=== PATIENT | male | born 1950 | race African-American/Black ===

== ENCOUNTER 2022-07-08 23:31 | Inpatient (IN) ==
[2022-07-09] MEDS ORDERED: SODIUM CHLORIDE 0.9% 1,000 ML IV STA (00:46)
[2022-07-09 01:18] LABS: INR 1.1; PT Patient Result 12.5 SECS (10.1-12.1)
[2022-07-09 01:34] LABS: Alanine Aminotransferase 30 U/L (16-61); Alkaline Phosphatase 101 U/L (45-117); Aspartate Amino Transferase 76 U/L (0-37); Blood Urea Nitrogen 33 MG/DL (7-18); Calcium 9.4 MG/DL (8.5-10.1); Carbon Dioxide 21 MMOL/L (21-32); Chloride 111 MMOL/L (98-107); Glucose 120 MG/DL (74-106); Osmolality,Calculated 284.5 MOS/KG (273-304); Potassium 5.6 MMOL/L (3.5-5.1); Sodium 139 MMOL/L (136-145); Total Protein 8.2 G/DL (6.4-8.2)
[2022-07-09 02:44] LABS: Basophils % 0.2 % (0.0-0.8); Hematocrit 22.1 VOL% (42.0-52.0); Immature Granulocytes % 0.4 %; Immature Granulocytes Absolute 0.04 #; Lymphocytes # 0.4 10*3/uL (1.4-4.0); Lymphocytes % 3.6 % (21.2-54.2); Mean Corpuscular HGB Conc 26.2 GM/DL (32-36); Mean Corpuscular Volume 56.4 FL (87-102); Mean Platelet Volume 9.9 FL (9.6-12.0); Monocytes # 0.5 10*3/uL (0.11-0.8); Monocytes % 4.6 % (1.7-12.7); NRBC # 0.05 10*3/uL; Neutrophils % 91.2 % (38.7-73.9); Platelet Count 426 T/CUMM (130-400); Red Blood Count 3.92 MC/CUMM (3.8-5.5); Red Cell Distribution Width 21.8 % (9.3-17.3); White Blood Count 11.2 T/CUMM (4-12)
[2022-07-09 02:47] LABS: Hemoglobin 5.8 GM/DL (14.0-18.0)
[2022-07-09 03:22] LABS: Hypochromia 1+; Lymphocytes 3 % (20-55); Microcytosis Slight; Platelet Estimate Adequate; Total Cells Counted 100
[2022-07-09] MEDS ORDERED: FUROSEMIDE 40 MG/4 ML VIAL IV STA (03:37)
[2022-07-09] MEDS ORDERED: cefTRIAXone 1,000 MG in SODIUM CHLORIDE 0.9% 100 ML IV STA (03:37)
[2022-07-09] MEDS ORDERED: LABETALOL 20 MG/4 ML SYRINGE IV PRN (04:28)
[2022-07-09] MEDS ORDERED: SODIUM CHLORIDE 0.9% 1,000 ML IV PRN ×2 (04:32→14:23)
[2022-07-09] MEDS ORDERED: cefTRIAXone 1,000 MG in SODIUM CHLORIDE 0.9% 100 ML IV SCH (05:00)
[2022-07-09 07:31] LABS: Risk Ratio 2.32; VLDL Cholesterol 13.4 MG/DL
[2022-07-09] MEDS ORDERED: FUROSEMIDE 40 MG/4 ML VIAL IV ONE (10:15)
[2022-07-09 10:39] LABS: Arterial Base Excess iSTAT -3 MMOL/L (-2.5-2.5); Arterial Bicarbonate iSTAT 20.2 MMOL/L (20-26); Arterial O2 Saturation iSTAT 94 % (95-100); Arterial PCO2 iSTAT 29 MM HG (35-48); Arterial PO2 iSTAT 65 MM HG (80-95); Arterial Total CO2 iSTAT 21 MMO/L (23-27); Arterial pH iSTAT 7.445 (7.35-7.45)
[2022-07-09 10:46] LABS: % Iron Saturation 3.2 % (18-50)
[2022-07-09 10:54] LABS: Folate 21.03 NG/ML (5.38-24.0); Vitamin B12 1692 PG/ML (211-911)
[2022-07-09] MEDS ORDERED: FOLIC ACID INJ 1 MG in SYRINGE 1 EACH IV SCH (12:00)
[2022-07-09] MEDS: PANTOPRAZOLE 40 MG VIAL IV SCH ×2 (14:42→20:10)
[2022-07-09 15:09] LABS: Calcium 9.1 MG/DL (8.5-10.1); Osmolality,Calculated 291.1 MOS/KG (273-304); Potassium 4.6 MMOL/L (3.5-5.1)
[2022-07-09 15:16] LABS: Basophils % 0.1 % (0.0-0.8); Hematocrit 31.3 VOL% (42.0-52.0); Immature Granulocytes % 0.6 %; Immature Granulocytes Absolute 0.12 #; Lymphocytes # 0.5 10*3/uL (1.4-4.0); Lymphocytes % 2.3 % (21.2-54.2); Mean Corpuscular HGB Conc 28.8 GM/DL (32-36); Mean Corpuscular Volume 65.3 FL (87-102); Mean Platelet Volume 9.3 FL (9.6-12.0); Monocytes # 0.2 10*3/uL (0.11-0.8); Monocytes % 1.1 % (1.7-12.7); NRBC # 0.12 10*3/uL; Neutrophils % 95.9 % (38.7-73.9); Platelet Count 387 T/CUMM (130-400); Red Blood Count 4.79 MC/CUMM (3.8-5.5); Red Cell Distribution Width 30.5 % (9.3-17.3); White Blood Count 19.8 T/CUMM (4-12)
[2022-07-09] MEDS ORDERED: NITROGLYCERIN 2% OINT 1 INCH/GM PACK TOP ONE (15:22)
[2022-07-09 15:24] LABS: Band Neutrophils 4 % (0-10); Lymphocytes 1 % (20-55); Nucleated Red Blood Cells 2 /100 WBC (0-5); Total Cells Counted 100
[2022-07-09 15:25] LABS: Hypochromia 2+; Microcytosis 2+; Target Cells 1+
[2022-07-09 15:26] LABS: Platelet Estimate Normal; Spherocytes Few
[2022-07-09 15:31] LABS: Hyaline Casts,Urine 1 /LPF (0-3); Mucus,Urine Occasional /LPF (Occasional); RBC,Urine 80 /HPF (0-4); Squamous Epithelial Cell,Urine Occasional /HPF (0-10)
[2022-07-09 15:32] LABS: Bilirubin,Urine Negative (Negative); Blood, Urine Large mg/dL (Negative); Glucose,Urine (UA) Negative (Negative); Ketones,Urine Negative (Negative); Nitrite,Urine Negative (Negative); Protein,Urine Negative (Negative); Urine Appearance Clear (Clear); Urine Color Yellow (Yellow); Urine Specific Gravity 1.015 (1.001-1.035); Urine Urobilinogen 0.2 eU/dL (<2.0); Urine pH 5.5 (4.5-8.0)
[2022-07-09] MEDS: THIAMINE 200 MG/2 ML VIAL IV SCH ×2 (15:35→20:10)
[2022-07-09 15:53] LABS: Sedimentation Rate-Westergren 41 MM/HR (0-20)
[2022-07-09] MEDS ORDERED: FUROSEMIDE 40 MG/4 ML VIAL IV SCH (16:00)
[2022-07-09] MEDS: FERRIC GLUCONATE COMPLEX 125 MG in SODIUM CHLORIDE 0.9% 100 ML IV SCH (16:04)
[2022-07-09] MEDS: FUROSEMIDE 40 MG/4 ML VIAL IV SCH (17:17)
[2022-07-09] MEDS: PIPERACILLIN/TAZOBACTAM 3,375 MG in SODIUM CHLORIDE 0.9% 100 ML IV SCH (17:17)
[2022-07-09 17:31] LABS: Hemoglobin 8.7 GM/DL (14.0-18.0)
[2022-07-09] MEDS ORDERED: POLYETHYLENE GLYCOL 3350/ELECTROLYTES 4,000 ML BOTTLE NG ONE (18:00)
[2022-07-09] MEDS ORDERED: MAGNESIUM HYDROXIDE SUSP 30 ML UDCUP NG ONE (21:00)
[2022-07-10] MEDS: PIPERACILLIN/TAZOBACTAM 3,375 MG in SODIUM CHLORIDE 0.9% 100 ML IV SCH ×2 (01:51→12:31)
[2022-07-10 02:45] LABS: Calcium 8.9 MG/DL (8.5-10.1); Potassium 3.9 MMOL/L (3.5-5.1)
[2022-07-10 03:02] LABS: Hematocrit 30.9 VOL% (42.0-52.0); Hemoglobin 8.9 GM/DL (14.0-18.0)
[2022-07-10 03:56] LABS: Arterial Base Excess iSTAT 0 MMOL/L (-2.5-2.5); Arterial Bicarbonate iSTAT 23.8 MMOL/L (20-26); Arterial O2 Saturation iSTAT 99 % (95-100); Arterial PCO2 iSTAT 33 MM HG (35-48); Arterial PO2 iSTAT 111 MM HG (80-95); Arterial Total CO2 iSTAT 25 MMO/L (23-27); Arterial pH iSTAT 7.467 (7.35-7.45)
[2022-07-10] MEDS ORDERED: cefTRIAXone 1,000 MG in SODIUM CHLORIDE 0.9% 100 ML IV SCH (05:00)
[2022-07-10 07:56] LABS: Basophils % 0.1 % (0.0-0.8); Hematocrit 30.7 VOL% (42.0-52.0); Hemoglobin 8.9 GM/DL (14.0-18.0); Immature Granulocytes % 1.2 %; Immature Granulocytes Absolute 0.28 #; Lymphocytes # 0.5 10*3/uL (1.4-4.0); Monocytes # 1.1 10*3/uL (0.11-0.8); Monocytes % 4.4 % (1.7-12.7); NRBC # 0.06 10*3/uL; Neutrophils % 92.3 % (38.7-73.9); Platelet Count 287 T/CUMM (130-400); Red Cell Distribution Width 29.9 % (9.3-17.3); White Blood Count 24.3 T/CUMM (4-12)
[2022-07-10 08:12] LABS: Hemoglobin A1 (Alkaline) 98.2 % (96.5-98.5); Hemoglobin A2 (Alkaline) 1.8 % (1.5-3.5)
[2022-07-10 08:17] LABS: Hypochromia Slight; Microcytosis Slight; Platelet Estimate Adequate; Target Cells Slight; Total Cells Counted 100
[2022-07-10] MEDS: FERRIC GLUCONATE COMPLEX 125 MG in SODIUM CHLORIDE 0.9% 100 ML IV SCH (09:13)
[2022-07-10] MEDS: PANTOPRAZOLE 40 MG VIAL IV SCH (09:13)
[2022-07-10] MEDS: FUROSEMIDE 40 MG/4 ML VIAL IV SCH ×2 (09:13→16:28)
[2022-07-10] MEDS: THIAMINE 200 MG/2 ML VIAL IV SCH ×2 (09:14→21:11)
[2022-07-10] MEDS: BISACODYL 5 MG TABLET NG SCH ×2 (12:30→16:05)
[2022-07-10 12:48] LABS: Hematocrit 30.1 VOL% (42.0-52.0); Hemoglobin 8.7 GM/DL (14.0-18.0)
[2022-07-10] MEDS: niCARdipine INJ 25 MG in SODIUM CHLORIDE 0.9% 240 ML IV PRN (13:33)
[2022-07-10] MEDS ORDERED: POLYETHYLENE GLYCOL 3350/ELECTROLYTES 4,000 ML BOTTLE NG ONE (14:00)
[2022-07-10] MEDS: ALBUTEROL/IPRATROPIUM 3 ML NEB RESP TX SCH ×2 (16:20→23:34)
[2022-07-10] MEDS: AZITHROMYCIN INJ 500 MG in SODIUM CHLORIDE 0.9% 250 ML IV SCH (16:27)
[2022-07-10] MEDS ORDERED: ALBUTEROL/IPRATROPIUM 3 ML NEB RESP TX ONE (16:28)
[2022-07-10] MEDS ORDERED: DORNASE ALFA 2.5 MG/2.5 ML VIAL ONE (17:23)
[2022-07-10] MEDS: DORNASE ALFA 2.5 MG/2.5 ML VIAL RESP TX SCH (18:36)
[2022-07-10 18:48] LABS: Hematocrit 31.2 VOL% (42.0-52.0); Hemoglobin 9.1 GM/DL (14.0-18.0)
[2022-07-10] MEDS ORDERED: MAGNESIUM HYDROXIDE SUSP 30 ML UDCUP PO PRN (21:00)
[2022-07-10] MEDS ORDERED: MAGNESIUM HYDROXIDE SUSP 30 ML UDCUP PO ONE (21:00)
[2022-07-11] MEDS: BISACODYL 5 MG TABLET NG SCH (01:08)
[2022-07-11] MEDS: PIPERACILLIN/TAZOBACTAM 3,375 MG in SODIUM CHLORIDE 0.9% 100 ML IV SCH ×2 (01:08→12:10)
[2022-07-11 02:34] LABS: Basophils % 0.1 % (0.0-0.8); Hematocrit 30.4 VOL% (42.0-52.0); Hemoglobin 8.9 GM/DL (14.0-18.0); Immature Granulocytes Absolute 0.23 #; Lymphocytes # 0.3 10*3/uL (1.4-4.0); Lymphocytes % 1.3 % (21.2-54.2); Mean Corpuscular HGB Conc 29.3 GM/DL (32-36); Mean Corpuscular Volume 62.7 FL (87-102); Monocytes # 0.8 10*3/uL (0.11-0.8); Monocytes % 3.5 % (1.7-12.7); NRBC # 0.03 10*3/uL; Neutrophils % 94.1 % (38.7-73.9); Platelet Count 288 T/CUMM (130-400); Red Blood Count 4.85 MC/CUMM (3.8-5.5); Red Cell Distribution Width 30.3 % (9.3-17.3); White Blood Count 23.8 T/CUMM (4-12)
[2022-07-11 02:54] LABS: Albumin 2.6 G/DL (3.4-5.0); Bilirubin,Total 0.8 MG/DL (0.20-1.00); Calcium 9.4 MG/DL (8.5-10.1); Osmolality,Calculated 306.3 MOS/KG (273-304); Potassium 2.8 MMOL/L (3.5-5.1); Total Protein 8.5 G/DL (6.4-8.2)
[2022-07-11 03:06] LABS: Hypochromia Slight; Lymphocytes 2 % (20-55); Microcytosis Slight; Nucleated Red Blood Cells 1 /100 WBC (0-5); Platelet Estimate Adequate; Total Cells Counted 100
[2022-07-11 03:07] LABS: Target Cells Slight
[2022-07-11] MEDS: POTASSIUM CHLORIDE RIDER 10 MEQ/100 ML PREMIX IV PRN ×4 (03:15→06:08)
[2022-07-11] MEDS: niCARdipine INJ 25 MG in SODIUM CHLORIDE 0.9% 240 ML IV PRN ×2 (04:57→20:28)
[2022-07-11] MEDS: POTASSIUM CHLORIDE RIDER 10 MEQ/100 ML PREMIX IV SCH ×4 (06:32→09:30)
[2022-07-11] MEDS: ALBUTEROL/IPRATROPIUM 3 ML NEB RESP TX SCH ×3 (07:26→19:57)
[2022-07-11] MEDS: THIAMINE 200 MG/2 ML VIAL IV SCH ×2 (07:30→20:23)
[2022-07-11] MEDS: PANTOPRAZOLE 40 MG VIAL IV SCH (07:35)
[2022-07-11] MEDS: DORNASE ALFA 2.5 MG/2.5 ML VIAL RESP TX SCH ×3 (07:44→20:04)
[2022-07-11] MEDS: FERRIC GLUCONATE COMPLEX 125 MG in SODIUM CHLORIDE 0.9% 100 ML IV SCH (08:25)
[2022-07-11 08:51] LABS: Arterial Base Excess iSTAT 8 MMOL/L (-2.5-2.5); Arterial Bicarbonate iSTAT 31.9 MMOL/L (20-26); Arterial O2 Saturation iSTAT 99 % (95-100); Arterial PCO2 iSTAT 42 MM HG (35-48); Arterial PO2 iSTAT 141 MM HG (80-95); Arterial Total CO2 iSTAT 33 MMO/L (23-27); Arterial pH iSTAT 7.489 (7.35-7.45)
[2022-07-11] MEDS ORDERED: LIDOCAINE 2% 5 ML VIAL ONE (13:06)
[2022-07-11] MEDS ORDERED: KETAMINE 500 MG/10 ML VIAL ONE (13:17)
[2022-07-11] MEDS ORDERED: ETOMIDATE 40 MG/20 ML VIAL IV ONE (14:50)
[2022-07-11] MEDS ORDERED: propofoL 200 MG/20 ML VIAL IV ONE (14:50)
[2022-07-11] MEDS: AZITHROMYCIN INJ 500 MG in SODIUM CHLORIDE 0.9% 250 ML IV SCH (15:15)
[2022-07-12] MEDS: ALBUTEROL/IPRATROPIUM 3 ML NEB RESP TX SCH ×4 (00:01→20:20)
[2022-07-12] MEDS: PIPERACILLIN/TAZOBACTAM 3,375 MG in SODIUM CHLORIDE 0.9% 100 ML IV SCH ×2 (00:52→12:00)
[2022-07-12 03:37] LABS: Arterial Base Excess iSTAT 6 MMOL/L (-2.5-2.5); Arterial Bicarbonate iSTAT 29.4 MMOL/L (20-26); Arterial O2 Saturation iSTAT 99 % (95-100); Arterial PCO2 iSTAT 39 MM HG (35-48); Arterial PO2 iSTAT 108 MM HG (80-95); Arterial Total CO2 iSTAT 31 MMO/L (23-27); Arterial pH iSTAT 7.481 (7.35-7.45)
[2022-07-12] MEDS: niCARdipine INJ 25 MG in SODIUM CHLORIDE 0.9% 240 ML IV PRN ×3 (04:29→17:20)
[2022-07-12 06:11] LABS: Albumin 2.5 G/DL (3.4-5.0); Bilirubin,Total 0.7 MG/DL (0.20-1.00); Calcium 9.9 MG/DL (8.5-10.1); Osmolality,Calculated 318.4 MOS/KG (273-304); Potassium 2.8 MMOL/L (3.5-5.1); Total Protein 8.4 G/DL (6.4-8.2)
[2022-07-12 06:18] LABS: Basophils % 0.1 % (0.0-0.8); Hemoglobin 8.8 GM/DL (14.0-18.0); Immature Granulocytes % 0.6 %; Immature Granulocytes Absolute 0.11 #; Lymphocytes # 0.4 10*3/uL (1.4-4.0); Lymphocytes % 2.1 % (21.2-54.2); Mean Corpuscular HGB Conc 28.8 GM/DL (32-36); Mean Corpuscular Volume 64.2 FL (87-102); Monocytes # 0.7 10*3/uL (0.11-0.8); Monocytes % 3.9 % (1.7-12.7); NRBC # 0.06 10*3/uL; Neutrophils % 93.3 % (38.7-73.9); Platelet Count 237 T/CUMM (130-400); Red Blood Count 4.77 MC/CUMM (3.8-5.5); Red Cell Distribution Width 31.2 % (9.3-17.3); White Blood Count 18.9 T/CUMM (4-12)
[2022-07-12 06:19] LABS: Hematocrit 30.6 VOL% (42.0-52.0)
[2022-07-12] MEDS: POTASSIUM CHLORIDE RIDER 10 MEQ/100 ML PREMIX IV PRN ×7 (06:22→18:10)
[2022-07-12 06:26] LABS: Hypochromia Slight; Lymphocytes 2 % (20-55); Microcytosis Slight; Platelet Estimate Adequate; Target Cells Few; Total Cells Counted 100
[2022-07-12] MEDS: DORNASE ALFA 2.5 MG/2.5 ML VIAL RESP TX SCH ×2 (07:31→20:05)
[2022-07-12] MEDS: PANTOPRAZOLE 40 MG VIAL IV SCH (07:45)
[2022-07-12] MEDS: THIAMINE 200 MG/2 ML VIAL IV SCH ×2 (07:50→20:04)
[2022-07-12] MEDS ORDERED: METOPROLOL TARTRATE 5 MG/5 ML VIAL IV SCH (09:10)
[2022-07-12] MEDS: FERRIC GLUCONATE COMPLEX 125 MG in SODIUM CHLORIDE 0.9% 100 ML IV SCH (09:10)
[2022-07-12] MEDS ORDERED: METOPROLOL TARTRATE 5 MG/5 ML VIAL IV PRN (09:18)
[2022-07-12] MEDS ORDERED: ASPIRIN CHEW 81 MG TABLET PO SCH (09:30)
[2022-07-12] MEDS ORDERED: LACTATED RINGERS 1,000 ML IV SCH (09:30)
[2022-07-12] MEDS: AZITHROMYCIN INJ 500 MG in SODIUM CHLORIDE 0.9% 250 ML IV SCH (14:10)
[2022-07-12 15:16] LABS: QuantiFERON-Tb Gold Pl Negative (Negative); TB2 Ag Minus Result 0 IU/mL
[2022-07-12] MEDS: ASPIRIN CHEW 81 MG TABLET PO SCH (16:00)
[2022-07-12 16:33] LABS: Calcium 9.1 MG/DL (8.5-10.1); Osmolality,Calculated 324.9 MOS/KG (273-304); Potassium 3.4 MMOL/L (3.5-5.1)
[2022-07-12] MEDS: METOPROLOL TARTRATE 5 MG/5 ML VIAL IV SCH (17:55)
[2022-07-13] MEDS: METOPROLOL TARTRATE 5 MG/5 ML VIAL IV SCH ×4 (00:07→18:08)
[2022-07-13] MEDS: PIPERACILLIN/TAZOBACTAM 3,375 MG in SODIUM CHLORIDE 0.9% 100 ML IV SCH ×2 (00:07→18:07)
[2022-07-13] MEDS: ALBUTEROL/IPRATROPIUM 3 ML NEB RESP TX SCH ×4 (00:23→19:40)
[2022-07-13] MEDS: niCARdipine INJ 25 MG in SODIUM CHLORIDE 0.9% 240 ML IV PRN (05:45)
[2022-07-13 06:33] LABS: Calcium 9.5 MG/DL (8.5-10.1); Osmolality,Calculated 318.3 MOS/KG (273-304); Phosphorous 1.7 MG/DL (2.5-4.9); Potassium 3.4 MMOL/L (3.5-5.1)
[2022-07-13 06:40] LABS: Basophils % 0.1 % (0.0-0.8); Eosinophils % 0.1 % (0.00-10.9); Hematocrit 29.3 VOL% (42.0-52.0); Hemoglobin 8.2 GM/DL (14.0-18.0); Immature Granulocytes % 0.7 %; Immature Granulocytes Absolute 0.13 #; Lymphocytes # 0.5 10*3/uL (1.4-4.0); Lymphocytes % 2.5 % (21.2-54.2); Mean Corpuscular Volume 65.1 FL (87-102); Monocytes # 0.6 10*3/uL (0.11-0.8); Monocytes % 3.2 % (1.7-12.7); NRBC # 0.05 10*3/uL; Neutrophils % 93.4 % (38.7-73.9); Platelet Count 215 T/CUMM (130-400); Red Cell Distribution Width 31.8 % (9.3-17.3); White Blood Count 17.7 T/CUMM (4-12)
[2022-07-13 06:44] LABS: Hypochromia 1+; Lymphocytes 2 % (20-55); Microcytosis 1+; Platelet Estimate Adequate; Target Cells Few; Total Cells Counted 100
[2022-07-13] MEDS: DORNASE ALFA 2.5 MG/2.5 ML VIAL RESP TX SCH ×2 (07:20→19:40)
[2022-07-13] MEDS: ASPIRIN CHEW 81 MG TABLET PO SCH (08:55)
[2022-07-13] MEDS: FERRIC GLUCONATE COMPLEX 125 MG in SODIUM CHLORIDE 0.9% 100 ML IV SCH (08:55)
[2022-07-13] MEDS: PANTOPRAZOLE 40 MG VIAL IV SCH (08:55)
[2022-07-13] MEDS: THIAMINE 200 MG/2 ML VIAL IV SCH ×2 (08:56→20:02)
[2022-07-13] MEDS ORDERED: POTASSIUM PHOSPHATE 30 MMOL in SODIUM CHLORIDE 0.9% 250 ML IV ONE (10:30)
[2022-07-13] MEDS: amLODIPine 10 MG TABLET PO SCH (12:38)
[2022-07-13] MEDS: hydrALAZINE 20 MG/1 ML VIAL IV PRN (15:40)
[2022-07-13] MEDS: AZITHROMYCIN INJ 500 MG in SODIUM CHLORIDE 0.9% 250 ML IV SCH (16:59)
[2022-07-14] MEDS: METOPROLOL TARTRATE 5 MG/5 ML VIAL IV SCH ×5 (00:10→23:43)
[2022-07-14] MEDS: ALBUTEROL/IPRATROPIUM 3 ML NEB RESP TX SCH ×4 (01:00→19:27)
[2022-07-14] MEDS: PIPERACILLIN/TAZOBACTAM 3,375 MG in SODIUM CHLORIDE 0.9% 100 ML IV SCH ×2 (03:44→16:59)
[2022-07-14 06:25] LABS: Phosphorous 3.1 MG/DL (2.5-4.9)
[2022-07-14 06:30] LABS: Albumin 1.9 G/DL (3.4-5.0); Bilirubin,Total 0.7 MG/DL (0.20-1.00); Osmolality,Calculated 316.9 MOS/KG (273-304); Total Protein 7.9 G/DL (6.4-8.2)
[2022-07-14 06:37] LABS: Basophils % 0.1 % (0.0-0.8); Eosinophils # 0.1 10*3/uL (0.0-0.87); Eosinophils % 0.3 % (0.00-10.9); Hematocrit 30.8 VOL% (42.0-52.0); Hemoglobin 8.5 GM/DL (14.0-18.0); Immature Granulocytes Absolute 0.17 #; Lymphocytes # 0.6 10*3/uL (1.4-4.0); Lymphocytes % 3.8 % (21.2-54.2); Mean Corpuscular HGB Conc 27.6 GM/DL (32-36); Mean Corpuscular Volume 65.3 FL (87-102); Monocytes # 0.7 10*3/uL (0.11-0.8); NRBC # 0.03 10*3/uL; Neutrophils % 90.8 % (38.7-73.9); Platelet Count 240 T/CUMM (130-400); Red Blood Count 4.72 MC/CUMM (3.8-5.5); Red Cell Distribution Width 32.6 % (9.3-17.3); White Blood Count 16.2 T/CUMM (4-12)
[2022-07-14 06:41] LABS: Lymphocytes 8 % (20-55); Target Cells 3+; Total Cells Counted 100
[2022-07-14 06:42] LABS: Platelet Estimate Normal
[2022-07-14] MEDS: DORNASE ALFA 2.5 MG/2.5 ML VIAL RESP TX SCH ×2 (07:10→19:27)
[2022-07-14] MEDS: ASPIRIN CHEW 81 MG TABLET PO SCH (09:26)
[2022-07-14] MEDS: FERRIC GLUCONATE COMPLEX 125 MG in SODIUM CHLORIDE 0.9% 100 ML IV SCH (09:26)
[2022-07-14] MEDS: PANTOPRAZOLE 40 MG VIAL IV SCH (09:27)
[2022-07-14] MEDS: THIAMINE 200 MG/2 ML VIAL IV SCH ×2 (09:27→20:58)
[2022-07-14] MEDS: amLODIPine 10 MG TABLET PO SCH (09:27)
[2022-07-14] MEDS ORDERED: ACETAMINOPHEN 650 MG SUPP RECTAL PRN (13:51)
[2022-07-14] MEDS: AZITHROMYCIN INJ 500 MG in SODIUM CHLORIDE 0.9% 250 ML IV SCH (18:20)
[2022-07-15] MEDS: ALBUTEROL/IPRATROPIUM 3 ML NEB RESP TX SCH ×3 (00:57→12:58)
[2022-07-15] MEDS: PIPERACILLIN/TAZOBACTAM 3,375 MG in SODIUM CHLORIDE 0.9% 100 ML IV SCH (03:49)
[2022-07-15] MEDS: METOPROLOL TARTRATE 5 MG/5 ML VIAL IV SCH ×4 (05:32→23:56)
[2022-07-15 05:36] LABS: Calcium 9.5 MG/DL (8.5-10.1); Osmolality,Calculated 327.5 MOS/KG (273-304); Potassium 4.1 MMOL/L (3.5-5.1)
[2022-07-15 05:41] LABS: Phosphorous 3.8 MG/DL (2.5-4.9)
[2022-07-15 05:46] LABS: Basophils % 0.1 % (0.0-0.8); Eosinophils % 0.2 % (0.00-10.9); Hematocrit 31.4 VOL% (42.0-52.0); Hemoglobin 8.7 GM/DL (14.0-18.0); Immature Granulocytes % 0.9 %; Immature Granulocytes Absolute 0.13 #; Lymphocytes # 0.6 10*3/uL (1.4-4.0); Lymphocytes % 4.2 % (21.2-54.2); Mean Corpuscular HGB Conc 27.7 GM/DL (32-36); Mean Corpuscular Volume 66.7 FL (87-102); Monocytes # 0.6 10*3/uL (0.11-0.8); NRBC # 0.02 10*3/uL; Neutrophils % 90.6 % (38.7-73.9); Platelet Count 233 T/CUMM (130-400); Red Blood Count 4.71 MC/CUMM (3.8-5.5); Red Cell Distribution Width 33.2 % (9.3-17.3); White Blood Count 14.2 T/CUMM (4-12)
[2022-07-15 05:53] LABS: Hypochromia Slight; Lymphocytes 4 % (20-55); Microcytosis Slight; Platelet Estimate Adequate; Target Cells 1+; Total Cells Counted 100
[2022-07-15] MEDS: DORNASE ALFA 2.5 MG/2.5 ML VIAL RESP TX SCH (07:05)
[2022-07-15] MEDS: FERRIC GLUCONATE COMPLEX 125 MG in SODIUM CHLORIDE 0.9% 100 ML IV SCH (08:59)
[2022-07-15] MEDS: THIAMINE 200 MG/2 ML VIAL IV SCH ×2 (09:00→21:16)
[2022-07-15] MEDS: PANTOPRAZOLE 40 MG VIAL IV SCH (09:00)
[2022-07-15] MEDS: cefTRIAXone 1,000 MG in SODIUM CHLORIDE 0.9% 100 ML IV SCH (11:08)
[2022-07-15] MEDS: DEXTROSE 5% 1,000 ML IV SCH ×2 (11:08→21:18)
[2022-07-15] MEDS: ASPIRIN CHEW 81 MG TABLET PO SCH (12:32)
[2022-07-15] MEDS: carvediloL 12.5 MG TABLET PO SCH ×2 (12:32→21:15)
[2022-07-15] MEDS: amLODIPine 10 MG TABLET PO SCH (12:32)
[2022-07-15] MEDS ORDERED: ALBUTEROL/IPRATROPIUM 3 ML NEB RESP TX PRN (14:01)
[2022-07-15] MEDS: AZITHROMYCIN INJ 500 MG in SODIUM CHLORIDE 0.9% 250 ML IV SCH (16:17)
[2022-07-16] MEDS: METOPROLOL TARTRATE 5 MG/5 ML VIAL IV SCH ×4 (05:19→23:53)
[2022-07-16 06:02] LABS: Calcium 8.9 MG/DL (8.5-10.1)
[2022-07-16 06:16] LABS: Basophils % 0.1 % (0.0-0.8); Eosinophils % 0.1 % (0.00-10.9); Hematocrit 27.6 VOL% (42.0-52.0); Hemoglobin 7.5 GM/DL (14.0-18.0); Immature Granulocytes % 0.9 %; Immature Granulocytes Absolute 0.13 #; Lymphocytes # 0.7 10*3/uL (1.4-4.0); Lymphocytes % 4.7 % (21.2-54.2); Mean Corpuscular HGB Conc 27.2 GM/DL (32-36); Mean Corpuscular Volume 66.7 FL (87-102); Monocytes # 0.7 10*3/uL (0.11-0.8); Monocytes % 4.9 % (1.7-12.7); NRBC # 0.05 10*3/uL; Neutrophils % 89.3 % (38.7-73.9); Platelet Count 250 T/CUMM (130-400); Red Blood Count 4.14 MC/CUMM (3.8-5.5); Red Cell Distribution Width 33.6 % (9.3-17.3); White Blood Count 14.6 T/CUMM (4-12)
[2022-07-16 06:43] LABS: Hypochromia 1+; Microcytosis 1+; Nucleated Red Blood Cells 1 /100 WBC (0-5); Platelet Estimate Adequate; Target Cells Few; Total Cells Counted 100
[2022-07-16] MEDS: hydrALAZINE 20 MG/1 ML VIAL IV PRN (07:01)
[2022-07-16] MEDS: DEXTROSE 5% 1,000 ML IV SCH ×2 (07:01→17:40)
[2022-07-16] MEDS: FERRIC GLUCONATE COMPLEX 125 MG in SODIUM CHLORIDE 0.9% 100 ML IV SCH (09:43)
[2022-07-16] MEDS: PANTOPRAZOLE 40 MG VIAL IV SCH (09:44)
[2022-07-16] MEDS: THIAMINE 200 MG/2 ML VIAL IV SCH ×2 (09:44→20:51)
[2022-07-16] MEDS: cefTRIAXone 1,000 MG in SODIUM CHLORIDE 0.9% 100 ML IV SCH (09:45)
[2022-07-16] MEDS: ASPIRIN CHEW 81 MG TABLET PO SCH (12:11)
[2022-07-16] MEDS: amLODIPine 10 MG TABLET PO SCH (12:11)
[2022-07-16] MEDS: carvediloL 12.5 MG TABLET PO SCH ×2 (12:11→20:50)
[2022-07-16] MEDS: AZITHROMYCIN INJ 500 MG in SODIUM CHLORIDE 0.9% 250 ML IV SCH (17:42)
[2022-07-17] MEDS: DEXTROSE 5% 1,000 ML IV SCH ×2 (04:00→13:01)
[2022-07-17] MEDS: METOPROLOL TARTRATE 5 MG/5 ML VIAL IV SCH ×2 (06:14→11:27)
[2022-07-17 06:26] LABS: Calcium 9.2 MG/DL (8.5-10.1); Potassium 3.7 MMOL/L (3.5-5.1)
[2022-07-17 06:40] LABS: Basophils % 0.1 % (0.0-0.8); Eosinophils # 0.1 10*3/uL (0.0-0.87); Eosinophils % 0.9 % (0.00-10.9); Hemoglobin 8.1 GM/DL (14.0-18.0); Immature Granulocytes % 0.9 %; Immature Granulocytes Absolute 0.14 #; Lymphocytes # 0.8 10*3/uL (1.4-4.0); Lymphocytes % 5.5 % (21.2-54.2); Mean Corpuscular Volume 67.1 FL (87-102); Monocytes # 0.5 10*3/uL (0.11-0.8); Monocytes % 3.4 % (1.7-12.7); NRBC # 0.08 10*3/uL; Neutrophils % 89.2 % (38.7-73.9); Platelet Count 250 T/CUMM (130-400); Red Blood Count 4.47 MC/CUMM (3.8-5.5); Red Cell Distribution Width 34.2 % (9.3-17.3); White Blood Count 14.9 T/CUMM (4-12)
[2022-07-17 06:42] LABS: Eosinophils 1 % (0-10); Hypochromia 1+; Lymphocytes 6 % (20-55); Microcytosis 1+; Nucleated Red Blood Cells 1 /100 WBC (0-5); Platelet Estimate Adequate; Total Cells Counted 100
[2022-07-17] MEDS ORDERED: ONDANSETRON 4 MG/2 ML VIAL IV PRN (07:36)
[2022-07-17] MEDS ORDERED: SODIUM CHLORIDE 0.9% 500 ML IV ONE (08:14)
[2022-07-17] MEDS ORDERED: DEXTROSE 5% 500 ML IV SCH (08:30)
[2022-07-17] MEDS: carvediloL 12.5 MG TABLET PO SCH ×2 (10:33→17:18)
[2022-07-17] MEDS: amLODIPine 10 MG TABLET PO SCH (10:34)
[2022-07-17] MEDS: ASPIRIN CHEW 81 MG TABLET PO SCH (10:34)
[2022-07-17] MEDS: THIAMINE 200 MG/2 ML VIAL IV SCH ×2 (10:49→20:42)
[2022-07-17] MEDS: PANTOPRAZOLE 40 MG VIAL IV SCH (10:49)
[2022-07-17] MEDS: cefTRIAXone 1,000 MG in SODIUM CHLORIDE 0.9% 100 ML IV SCH (10:52)
[2022-07-17] MEDS: FERRIC GLUCONATE COMPLEX 125 MG in SODIUM CHLORIDE 0.9% 100 ML IV SCH (10:55)
[2022-07-17 12:37] LABS: Calcium 9.2 MG/DL (8.5-10.1); Osmolality,Calculated 320.2 MOS/KG (273-304); Potassium 3.8 MMOL/L (3.5-5.1)
[2022-07-17] MEDS ORDERED: DEXTROSE 5% 1,000 ML IV SCH (13:00)
[2022-07-17] MEDS ORDERED: cloNIDine 0.2 MG/24 HR PATCH TRANSDERM SCH (14:00)
[2022-07-17] MEDS: DEXTROSE 5% KCL 20 MEQ 20 MEQ/1,000 ML BAG IV SCH ×2 (14:35→20:51)
[2022-07-17] MEDS: AZITHROMYCIN INJ 500 MG in SODIUM CHLORIDE 0.9% 250 ML IV SCH (17:16)
[2022-07-18] MEDS: DEXTROSE 5% KCL 20 MEQ 20 MEQ/1,000 ML BAG IV SCH ×2 (03:20→12:00)
[2022-07-18 06:29] LABS: Calcium 8.3 MG/DL (8.5-10.1); Potassium 3.9 MMOL/L (3.5-5.1)
[2022-07-18 06:42] LABS: Basophils % 0.1 % (0.0-0.8); Eosinophils # 0.1 10*3/uL (0.0-0.87); Eosinophils % 0.5 % (0.00-10.9); Hematocrit 27.1 VOL% (42.0-52.0); Immature Granulocytes Absolute 0.16 #; Lymphocytes # 0.8 10*3/uL (1.4-4.0); Lymphocytes % 4.9 % (21.2-54.2); Mean Corpuscular HGB Conc 28.4 GM/DL (32-36); Mean Corpuscular Volume 65.8 FL (87-102); Monocytes # 0.5 10*3/uL (0.11-0.8); Monocytes % 3.2 % (1.7-12.7); NRBC # 0.09 10*3/uL; Neutrophils % 90.3 % (38.7-73.9); Platelet Count 282 T/CUMM (130-400); Red Blood Count 4.12 MC/CUMM (3.8-5.5); Red Cell Distribution Width 34.3 % (9.3-17.3); White Blood Count 15.4 T/CUMM (4-12)
[2022-07-18 06:44] LABS: Hemoglobin 7.7 GM/DL (14.0-18.0)
[2022-07-18 06:47] LABS: Hypochromia 1+; Lymphocytes 5 % (20-55); Microcytosis Slight; Platelet Estimate Adequate; Target Cells Few; Total Cells Counted 100
[2022-07-18] MEDS ORDERED: LACTATED RINGERS 1,000 ML IV SCH (08:30)
[2022-07-18] MEDS ORDERED: ceFAZolin 1,000 MG VIAL ONE (09:05)
[2022-07-18] MEDS ORDERED: SODIUM CHLORIDE 0.9% 0 ML IV ONE (09:06)
[2022-07-18] MEDS ORDERED: propofoL 200 MG/20 ML VIAL IV ONE (09:11)
[2022-07-18] MEDS ORDERED: LIDOCAINE 2% 5 ML VIAL ONE (09:11)
[2022-07-18] MEDS ORDERED: KETAMINE 500 MG/10 ML VIAL ONE (09:11)
[2022-07-18] MEDS: cefTRIAXone 1,000 MG in SODIUM CHLORIDE 0.9% 100 ML IV SCH (12:00)
[2022-07-18] MEDS: carvediloL 12.5 MG TABLET PO SCH ×2 (12:09→16:52)
[2022-07-18] MEDS: ASPIRIN CHEW 81 MG TABLET PO SCH (12:10)
[2022-07-18] MEDS: amLODIPine 10 MG TABLET PO SCH (12:11)
[2022-07-18] MEDS: THIAMINE 200 MG/2 ML VIAL IV SCH ×2 (12:16→22:46)
[2022-07-18] MEDS: PANTOPRAZOLE 40 MG VIAL IV SCH (12:17)
[2022-07-18] MEDS ORDERED: methylPREDNISolone SOD SUC 125 MG/2 ML VIAL IV ONE (14:15)
[2022-07-18] MEDS ORDERED: FUROSEMIDE 20 MG/2 ML VIAL IV ONE (14:30)
[2022-07-18] MEDS: ACETAMINOPHEN 325 MG/10.15 ML UDCUP PER TUBE PRN ×2 (18:49→22:46)
[2022-07-19 05:53] LABS: Calcium 8.6 MG/DL (8.5-10.1); Potassium 4.3 MMOL/L (3.5-5.1)
[2022-07-19 06:27] LABS: Basophils % 0.2 % (0.0-0.8); Immature Granulocytes % 0.7 %; Immature Granulocytes Absolute 0.13 #; Lymphocytes # 0.6 10*3/uL (1.4-4.0); Lymphocytes % 3.1 % (21.2-54.2); Mean Corpuscular HGB Conc 28.5 GM/DL (32-36); Monocytes # 0.2 10*3/uL (0.11-0.8); NRBC # 0.05 10*3/uL; Platelet Count 249 T/CUMM (130-400); Red Blood Count 3.94 MC/CUMM (3.8-5.5); Red Cell Distribution Width 34.1 % (9.3-17.3); White Blood Count 18.3 T/CUMM (4-12)
[2022-07-19 06:29] LABS: Hemoglobin 7.4 GM/DL (14.0-18.0)
[2022-07-19 06:31] LABS: Hypochromia 1+; Lymphocytes 4 % (20-55); Microcytosis 1+; Nucleated Red Blood Cells 1 /100 WBC (0-5); Platelet Estimate Adequate; Total Cells Counted 100
[2022-07-19] MEDS: carvediloL 12.5 MG TABLET PO SCH ×2 (09:03→16:38)
[2022-07-19] MEDS: PANTOPRAZOLE 40 MG VIAL IV SCH (09:03)
[2022-07-19] MEDS: amLODIPine 10 MG TABLET PO SCH (09:03)
[2022-07-19] MEDS: ASPIRIN CHEW 81 MG TABLET PO SCH (09:03)
[2022-07-19] MEDS: THIAMINE 200 MG/2 ML VIAL IV SCH ×2 (09:03→20:38)
[2022-07-19] MEDS: cefTRIAXone 1,000 MG in SODIUM CHLORIDE 0.9% 100 ML IV SCH (12:49)
[2022-07-20 06:50] LABS: Basophils % 0.2 % (0.0-0.8); Eosinophils % 0.1 % (0.00-10.9); Hemoglobin 8.2 GM/DL (14.0-18.0); Immature Granulocytes % 0.7 %; Immature Granulocytes Absolute 0.18 #; Lymphocytes # 0.4 10*3/uL (1.4-4.0); Lymphocytes % 1.7 % (21.2-54.2); Mean Corpuscular HGB Conc 28.1 GM/DL (32-36); Mean Corpuscular Volume 65.8 FL (87-102); Monocytes # 0.5 10*3/uL (0.11-0.8); Monocytes % 2.1 % (1.7-12.7); NRBC # 0.06 10*3/uL; Neutrophils % 95.2 % (38.7-73.9); Platelet Count 259 T/CUMM (130-400); Red Blood Count 4.44 MC/CUMM (3.8-5.5); Red Cell Distribution Width 34.6 % (9.3-17.3); White Blood Count 24.7 T/CUMM (4-12)
[2022-07-20 06:53] LABS: Calcium 8.7 MG/DL (8.5-10.1); Osmolality,Calculated 306.8 MOS/KG (273-304); Potassium 4.6 MMOL/L (3.5-5.1)
[2022-07-20 06:54] LABS: Hematocrit 29.2 VOL% (42.0-52.0)
[2022-07-20 07:06] LABS: Lymphocytes 2 % (20-55); Platelet Estimate Adequate; Total Cells Counted 100
[2022-07-20 07:08] LABS: Hypochromia 1+; Microcytosis 1+; Target Cells Few
[2022-07-20] MEDS: carvediloL 12.5 MG TABLET PO SCH (09:53)
[2022-07-20] MEDS: ASPIRIN CHEW 81 MG TABLET PO SCH (09:53)
[2022-07-20] MEDS: amLODIPine 10 MG TABLET PO SCH (09:53)
[2022-07-20] MEDS: THIAMINE 200 MG/2 ML VIAL IV SCH (09:53)
[2022-07-20] MEDS: PANTOPRAZOLE 40 MG VIAL IV SCH (09:53)
[2022-07-20] MEDS: cefTRIAXone 1,000 MG in SODIUM CHLORIDE 0.9% 100 ML IV SCH (10:11)
[2022-07-20 12:22] VITALS: BP 141/82
== END 2022-07-20 15:25 | disposition hospice, home (50) | DRG 64 ==
LOC: N.ED 23:31 → SUATTDRO 07-09 04:28 → N.EDINP 07-09 04:28 → N.TELES 07-09 08:58 → N.CC 07-09 14:50 → N.3E 07-13 19:40
PROVIDERS: ADMIT Hospitalist; ATTEND Family Medicine
PROC: COLONBX (2022-07-11 07:35)
PROC: EGDWPEG (ICD-10-PCS; 2022-07-18 08:20)